=== PATIENT | male | born 1995 | race Caucasian/White ===

== ENCOUNTER 2018-04-27 02:51 | Emergency (ER) | payer MEDICAID ==
[~2018-04-27] VITALS: Ht 170.2 cm; Wt 59.0 kg
[2018-04-27] MEDS ORDERED: LIDOCAINE 1%-EPI 1:100,000 20 ML VIAL ONE (02:59)
[2018-04-27] MEDS ORDERED: TDAP [DIPH/PERTUSSIS/TET] 0.5 ML VIAL IM ONE ×2 (03:00→03:10)
[2018-04-27] MEDS ORDERED: LIDOCAINE 1%-EPI 1:100,000 20 ML VIAL TP ONE (03:00)
[2018-04-27] MEDS ORDERED: CEFAZOLIN 1 GM VIAL IM ONE (03:00)
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
[2018-04-27] MEDS ORDERED: CEFAZOLIN 1 GM ONE (03:10)
--- NOTE | 2018-04-27 03:10 | NUR ---
SUTURE SET UP IS AT THE BEDSIDE FOR MD.
--- NOTE | 2018-04-27 03:15 | NUR ---
PT IS GOING TO CT VIA [facility]
--- NOTE | 2018-04-27 03:27 | NUR ---
PT RETURNED FROM CT.
--- NOTE | 2018-04-27 03:29 | NUR ---
DR. ESTRADA AT THE BEDSIDE FOR SUTURING.
--- NOTE | 2018-04-27 03:59 | NUR ---
XRAY IN PROGRESS AT THE BEDSIDE.
--- NOTE | 2018-04-27 04:56 | NUR ---
Patient discharged to home in stable condition. Written and verbal after care instructions given. Patient verbalizes understanding of instruction AND RX. VSS. RESP EVEN AND UNLABORED. PT IS CALLING A FRIEND TO PICK HIM UP.
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
[2018-04-27 06:09] VITALS: BP 138/85
== END 2018-04-27 05:40 | disposition home or self-care (01) ==
LOC: ER 02:53
DX: S92.401A Displaced unspecified fracture of right great toe, initial encounter for closed fracture (principal); S91.311A Laceration without foreign body, right foot, initial encounter; S60.511A Abrasion of right hand, initial encounter; F10.129 Alcohol abuse with intoxication, unspecified; F17.200 Nicotine dependence, unspecified, uncomplicated; V43.52XA Car driver injured in collision with other type car in traffic accident, initial encounter; Y93.89 Activity, other specified; Y92.410 Unspecified street and highway as the place of occurrence of the external cause; Y99.8 Other external cause status
CPT/HCPCS: 12001; 72125; 73130; 73630; 90471; 90715; 96372; 99284; 99406; A4606 ×2; A6403 ×2; J0690; J3490; Z7610 ×2